=== PATIENT | male | born 1940 | race Caucasian/White ===

== ENCOUNTER → 2017-03-07 | Outpatient (CLI) | payer OTHER ==
[~2017-03-07] VITALS: Ht 170.2 cm; Wt 63.5 kg
[~2017-03-07] MED LIST: APRISO0.375 GM PO; ASPIR 8181 MG PO; CO Q-10100 MG PO; DILT-XR240 M1 PO; LIPITOR 20 MG T20 M1 PO; LISINOPRIL20 MG PO; OMEGA-31000 M1 PO; OSTEO BI-FLEX1 EAC1 PO; PLAVIX 75 MG TA75 M1 PO; SERTRALINE HCL100 MG PO; UNICOMPLEX M TA1 TA1 PO; VALIUM5 MG PO; VITAMIN D3400 UNIT PO
--- NOTE | ~2017-03-07 | HPC ---
[facility] [place] [address] PAIN MANAGEMENT CONSULTATION Name: WAGNER NEWMAN Room #: [facility].#: [id number] Admission: 03/07/17 Attend Phys: Wagner Marlow MD Discharge: Date of : 39 Report #: [id number] THIS REPORT FOR: //name// CC: Art Marlow DATE OF SERVICE: 03/07/2017 CHIEF COMPLAINT: Chronic back pain with increasing severity of radiating leg pain, lumbar radiculopathy. The patient is a pleasant 76-year-old who Dr. Zambrano has asked me to see today in evaluation of low back and leg pain. He has reported on and off back pain, in his words, for the last 20 years. More recently in the last year or so, he has noticed some increasing pain that radiates into both legs, generally worse in the morning. Standing is not good, but he finds that walking on a treadmill actually makes his pain feel better. He also uses heat. This description of pain results in a report of a periodic pattern of aching that varies in intensity between 8/10 and 2/10. Treatment so far included generally exercise. He has not been taking much in the way of pain medications, and he is reluctant to do so. Dr. Zambrano has suggested evaluation for possible epidural injection should be noted at this point that he is still on his Plavix, which he takes at this time for a recognized with x-ray diagnosed many strokes. MEDICATIONS: Plavix 75 mg daily, diltiazem, atorvastatin, lisinopril, diazepam, sertraline and Apriso for colitis. ALLERGIES: None. PAST MEDICAL HISTORY: Hypertension, diffuse degenerative osteoarthritis, history of colitis and he was diagnosed on MRI as having some small cerebellar strokes. These have been asymptomatic. PAST SURGICAL HISTORY: Hemorrhoidectomy 30 years ago, appendectomy 50 years ago. REVIEW OF SYSTEMS: Good general health, some hearing loss, chronic cough, nocturia, slight tremor, on a bruising or bleeding tendency, on blood thinner. 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 Smokes a pipe, has done so for about 40 years and drinks alcohol in social setting. PHYSICAL EXAMINATION: [facility] [address] [place] [address] PAIN MANAGEMENT CONSULTATION Name: WAGNER NEWMAN Room #: [facility]#: [id number] Admission: 03/07/17 Attend Phys: Wagner Marlow MD Discharge: Date of : 39 Report #: [id number] GENERAL: Very pleasant 76-year-old gentleman. His blood pressure 123/73, heart rate 64, respirations 16. His BMI is 21.9 and moves easily from sitting to standing position, ambulates with a steady gait. There are no antalgic features. He does not appear to be in unsteady or shows signs of spasticity or weakness. CARDIAC: Rhythm is regular. CHEST: Clear. ABDOMEN: Soft, back is nontender, range of motion is within normal limits for age. Mild tenderness over the lumbosacral segment is noted. Straight leg raising reproduces only mild symptoms of radiculopathy down the posterior aspect of the leg where his symptoms generally occur throughout the day. Sensation is intact. No focal weakness. Deep tendon reflexes are absent bilaterally. X-rays available are reviewed demonstrating degenerative changes of the spine. RECOMMENDATION: His symptoms following an L5-S1 distribution. This is typical sciatica that occurs with degenerative changes. Trial of an epidural steroid injection may be most helpful. 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 Potential risks and benefits were reviewed in detail, questions were answered and plan to see him back in the pain clinic sometime in the next week to 10 days. By: [id number] Wagner Marlow MD /nt
[2017-03-07 10:52] VITALS: BP 123/73
== END ==
LOC: PAIN 07:03
DX: M54.16 Radiculopathy, lumbar region (principal); G89.29 Other chronic pain; I10 Essential (primary) hypertension; M19.90 Unspecified osteoarthritis, unspecified site; F17.210 Nicotine dependence, cigarettes, uncomplicated

== ENCOUNTER → 2017-03-21 | Outpatient (CLI) | payer OTHER ==
[~2017-03-21] VITALS: Ht 170.2 cm; Wt 64.9 kg
--- NOTE | ~2017-03-21 | HPC ---
[facility] [place] [address] PAIN MANAGEMENT CONSULTATION Name: VALERIE NEWMAN Room #: REG [facility].#: [id number] Admission: 03/21/17 Attend Phys: Valerie Marlow MD Discharge: Date of : 39 Report #: [id number] THIS REPORT FOR: //name// CC: Art Marlow DATE OF SERVICE: 03/21/2017 DATE OF REGISTRATION: 03/21/2017. REASON FOR VISIT: Followup visit for lumbar radiculopathy. SUBJECTIVE: The patient was seen just a week ago, on Plavix. He has discontinued his medication for 7 days in anticipation of an epidural injection. Nothing has changed since his last visit. Continues to experience pain bilaterally in lower extremities. Reviewed his diagnosis from his previous visit. Our plan is to proceed today with an epidural injection. IMPRESSION: 1. Chronic low back pain with radiculopathy, L5-S1 distribution. Multilevel degenerative spinal disease. 2. History of mild cerebrovascular accident, off Plavix for 7 days. PLAN: After informed consent, the patient has agreed to proceed today with an injection under fluoroscopic guidance. PROCEDURE: Epidural steroid injection. The patient was taken to fluoroscopic suite, placed prone, skin prepped with ChloraPrep. Skin anesthetized over L4-L5, and a 20-gauge Tuohy epidural needle advanced into the epidural space. No blood nor CSF was aspirated. Then, 1 mL of Omnipaque was injected. Good spread of dye observed in the epidural space followed by 3 mL of 0.5% lidocaine mixed with 80 mg of triamcinolone. He tolerated the procedure well and was observed for 45 minutes and discharged with a followup visit planned as needed in 1 month. By: 1555 0013 Valerie Marlow MD /nt
[2017-03-21 14:15] VITALS: BP 125/67
== END | disposition home or self-care (01) ==
LOC: PAIN 07:13
DX: M54.16 Radiculopathy, lumbar region (principal); I63.9 Cerebral infarction, unspecified; F17.210 Nicotine dependence, cigarettes, uncomplicated

== ENCOUNTER → 2017-10-23 | Outpatient (CLI) | payer OTHER ==
[~2017-10-23] VITALS: Ht 167.6 cm; Wt 65.1 kg
[~2017-10-23] MED LIST changes: +HYDROCODON-ACE1 EAC5 PO; +HYDROCODONE-AP1 EAC6 PO; +OXYCODONE-ACET1 EACH PO; +PERIDEX15 ML TOP
--- NOTE | ~2017-10-23 | HPC ---
[facility] [address] PAIN MANAGEMENT CONSULTATION Name: VALERIE NEWMAN Room #: REG [facility] Benji#: [id number] Admission: 10/23/17 Attend Phys: Shekhar Avery MD Discharge: Date of : 39 Report #: [id number] THIS REPORT FOR: //name// CC: Art Avery DATE OF SERVICE: 10/23/2017 FOLLOWUP COMPLAINT: "Pain improved after the last injections, but has increased and I am still having some pain that is going down the back of both my legs." FOLLOWUP HISTORY: The patient is a 76-year-old gentleman who has been seen in the pain clinic by Dr. Valerie Marlow. He has returned today indicating that the pain has improved. He has undergone epidural steroid injections and gleaned benefits from them. He returned today indicating that the pain is more in the posterior portion of his leg and radiating down into the back and posterior portion of his thighs and calves. He found that the [facility] medication was helpful. He felt that the pain returned and given the small number of pills that he had received, he has taken them. He is wondering whether or not a different medication or a longer-term medication could be more helpful. The patient is unable to take nonsteroidal anti-inflammatory medication because he is on Plavix. He finds that use of Tylenol has not been very beneficial. He has had a conversation with Dr. Marlow regarding use of opioid medications. He would like for us to refill his prescription and he will follow up with Dr. Marlow in the future regarding longer-term medication use. PHYSICAL EXAMINATION: VITAL SIGNS: Blood pressure 116/84, pulse 87, respiratory rate 16, and room air saturation 96%. Height 5 feet 6 inches, weight 143 pounds. The patient has fallen in the last 3 months. He is walking with a cane. He rates his pain as a 7/10. HEENT: Unremarkable. NECK: Without adenopathy. There are no bruits. CHEST: Clear. HEART: Regular rate. ABDOMEN: Nontender. NEUROLOGIC: The patient is walking with use of a cane. He is able to stand and reports pain that radiates from his lower back down into the posterior portion of his legs bilaterally. He has a trace patellar reflex on the left and right, trace patellar reflexes on the ankles. No evidence of increased swelling in his lower extremities. The patient walks with use of his cane and has an antalgic gait. Straight leg raising is mildly positive. IMPRESSION: 1. Lumbar radiculopathy, which has improved in the past with epidural steroid [address] [address] PAIN MANAGEMENT CONSULTATION Name: VALERIE NEWMAN Room #: REG [facility]#: [id number] Admission: 10/23/17 Attend Phys: Shekhar Avery MD Discharge: Date of : 39 Report #: [id number] injections. 2. Hypertension. 3. Hyperlipidemia. 4. Anxiety. RECOMMENDATIONS: The patient finds that the hydrocodone was helpful. We will increase him from 30 tablets, which Dr. Marlow had provided, to 60 tablets. We will proceed with a lumbar epidural steroid injection. We will have the patient follow up with Dr. Marlow regarding longer-term medical management. Risks and benefits of the procedure, which could include, but are not limited to infection, increased muscle soreness, headache, bleeding, muscle trauma, and nerve trauma were discussed. The patient elects to proceed. PROCEDURE NOTE: The patient was placed in the prone position. Fluoroscopy was used to identify the L5-S1 interspace. This area had been sterilely prepped with Betadine and infiltrated with 0.25% bupivacaine. Total of 80 mg Depo-Medrol, 40 mg triamcinolone, and 2 mL of 0.25% bupivacaine was injected. The patient tolerated the procedure well. Anterior and lateral fluoroscopy approved appropriate needle placement. The patient's back was observed. A Band-Aid was placed. There were no bleeding problems. The patient was then taken to the recovery room where he remained for an appropriate amount of time. He will follow up in the near future as needed. A script for hydrocodone 5/325 one p.o. b.i.d. has been written. <ELECTRONICALLY SIGNED> By: Shekhar Avery MD 01/01/18 1121 [id number] Shekhar Avery MD /nt
[2017-10-23 10:23] VITALS: BP 116/84
== END | disposition home or self-care (01) ==
LOC: PAIN 06:56
DX: M54.16 Radiculopathy, lumbar region (principal); G89.29 Other chronic pain; I10 Essential (primary) hypertension; E78.5 Hyperlipidemia, unspecified; F41.8 Other specified anxiety disorders; Z98.890 Other specified postprocedural states; Z79.891 Long term (current) use of opiate analgesic; F17.200 Nicotine dependence, unspecified, uncomplicated; Z79.82 Long term (current) use of aspirin; Z79.899 Other long term (current) drug therapy

== ENCOUNTER → 2017-11-18 | Outpatient (CLI) | payer OTHER ==
[~2017-11-18] VITALS: Ht 170.2 cm; Wt 65.6 kg
--- NOTE | ~2017-11-18 | HPC ---
[facility] [place] [address] PAIN MANAGEMENT CONSULTATION Name: VALERIE NEWMAN Room #: REG [facility].#: [id number] Admission: 11/18/17 Attend Phys: Valerie Marlow MD Discharge: Date of : 39 Report #: [id number] THIS REPORT FOR: //name// CC: Art Marlow DATE OF SERVICE: 11/18/2017 SUBJECTIVE: Followup visit for low back pain and radiculopathy, right leg. The patient returns to pain clinic today and has pain more consistent with right L3 distribution. He previously has had pain that radiates down into both legs. He saw Dr. Avery on 10/23/2017 and received an epidural steroid injection at L5-S1. That was not as helpful as previous injections have been and he also noticed that the pain changed somewhat. He has difficulty crossing his right leg. He does not necessarily note weakness, but that simple maneuver bothers him that he cannot do it without significant discomfort. His says that he also has trouble standing in line or at [facility] and has to look for a chair. As soon as he sits down, his pain is improved. Pain radiates as far as the knee. Medications were reviewed and reconciled. He is on a blood thinner and has continued that through his today's visit without anticipation of injection. He is here today to discuss next steps. MEDICATIONS: Include hydrocodone 5/325, which he does not think helps to very much. He is on Plavix 75 mg, diazepam 5 mg twice a day for anxiety, lisinopril, diltiazem, atorvastatin, sertraline, , multivitamins and aspirin. PQRS review shows a history of osteoarthritis in the hands, mostly involving the proximal interphalangeal joint and the metacarpophalangeal joint of the thumb. He is treated that with anti-inflammatories in the past, but cannot use them now due to the use of Plavix. His BMI is 22.6 and he is not overweight. Vital signs were blood pressure 112/69, heart rate 89, O2 sat 95. Pain intensity in the sitting position is 2, it only becomes severe when he stands. He is a fall risk, using a cane, but has not fallen in the last 3 months. He is on blood thinner, Plavix. He has hypertension, under treatment with a dual medication therapy from Dr. Zambrano. He is on an opioid agreement, which was signed on 11/18/2017 and I have provided him with a new prescription for oxycodone just 30 tablets to see if this will help with the severe episodes of pain. He is at low risk and a risk assessment tool was performed. He has a functional assessment tool, which shows high involvement of his pain and day-to-day activities with a 46/70. Continues to smoke a pipe and has done so for 40 years and drinks alcohol, perhaps 1 drink daily in a social setting. PHYSICAL EXAMINATION: Reveals much of what discussed above. He has pain in his [address] [place] [address] PAIN MANAGEMENT CONSULTATION Name: VALERIE NEWMAN Room #: REG [facility]#: [id number] Admission: 11/18/17 Attend Phys: Valerie Marlow MD Discharge: Date of : 39 Report #: [id number] back, but excellent range of motion. No pain with forward flexion, extension, rotation or [id number] tilt. Negative straight leg raising. Good rotation in and around hip, but no pain, internal and external rotation. Sensation is intact and strength is normal. Deep tendon reflexes are diminished at knees and ankle bilaterally and symmetrically. IMPRESSION: Low back pain with L3 distribution radicular pain. RECOMMENDATIONS: 1. MRI scan will be performed today without contrast and we will review the studies and consider another epidural injection after his off Plavix. 2. Trial of oxycodone. 3. Follow up by phone after the MRI is done and I will review it with him over the phone. <ELECTRONICALLY SIGNED> By: Valerie Marlow MD 12/18/17 1640 [id number] [id number] Valerie Marlow MD /july
[2017-11-18 13:38] VITALS: BP 112/69
== END ==
LOC: PAIN 07:06
DX: M54.16 Radiculopathy, lumbar region (principal)

== ENCOUNTER → 2017-11-20 | Outpatient (CLI) | payer OTHER | LOC: MRI 09:48 | DX: M48.061 Spinal stenosis, lumbar region without neurogenic claudication (principal); M51.37 Other intervertebral disc degeneration, lumbosacral region; M43.17 Spondylolisthesis, lumbosacral region; M51.27 Other intervertebral disc displacement, lumbosacral region; M46.87 Other specified inflammatory spondylopathies, lumbosacral region ==

== ENCOUNTER → 2017-11-28 | Outpatient (CLI) | payer OTHER ==
[~2017-11-28] VITALS: Ht 167.6 cm; Wt 64.1 kg
--- NOTE | ~2017-11-28 | HPC ---
[facility] [place] [address] PAIN MANAGEMENT CONSULTATION Name: VALERIE NEWMAN Room #: REG [facility].#: [id number] Admission: 11/28/17 Attend Phys: Valerie Marlow MD Discharge: Date of : 39 Report #: [id number] THIS REPORT FOR: //name// CC: Art Marlow DATE OF SERVICE: 11/28/2017 Followup visit for severe right lumbar radiculopathy. The patient returns to pain clinic today. I spoke with him over the phone about the MRI that I had ordered. He is here today to review the films and the options for treatment going forward. His MRI dated 11/20/2017 shows grade 1 anterolisthesis of L5; however, the more significant disease is multilevel degenerative disk disease with bulging, facet arthropathy resulting in severe spinal stenosis at lumbar 3-4 and moderate spinal stenosis at lumbar 2-3. There is multilevel narrowing of the lateral recess and neural foraminal narrowing at several levels. He continues to score his function at a 46/70 for interference. This is substantially high and involves general activities, mood, walking and he scores 8/10 for the pain interfering with his ability to enjoy life. He has taken both oxycodone and hydrocodone preferring the latter. He has had few side effects. He does not over utilize his pain medication. He is here today off of his Plavix with anticipation for injection. MEDICATIONS: Reviewed and reconciled. He is off his Plavix for 1 week. PQRS REVIEW: He has osteoarthritis involving his thumbs and large joints. He has remained fit over the years and his BMI is 28. His pain intensity sitting is 5/10, increasing with walking. He is a fall risk, although fortunately has not fallen, been cautious and uses a cane. He has a history of hypertension treated by Dr. Zambrano. He is on a blood thinner, Plavix, discontinued for injection. He is on an opioid agreement established 11/18/2017. His risk assessment tool is low 1/3. His functional assessment tool as described above. He continues to smoke a pipe, which he enjoys and has 1 alcoholic beverage daily in a social setting with his . PHYSICAL EXAMINATION: Reveals a pleasant 77-year-old gentleman, pain with movement, standing and walking. He walks with a cane. His blood pressure 112/71, heart rate 78, respirations 16. Positive straight leg raising on the right, follows an L4 distribution. IMPRESSION: Severe spinal stenosis at L3-L4 [place] [address] PAIN MANAGEMENT CONSULTATION Name: VALERIE NEWMAN [facility] #: [facility] [id number] Admission: 11/28/17 Attend Phys: Valerie Marlow MD Discharge: Date of : 39 Report #: [id number] RECOMMENDATION: 1. Right L3-L4 transforaminal epidural injection. 2. Renewal of hydrocodone . Twenty-five minutes spent in consultation with the patient regarding medication and options. We have reviewed surgical options as well. PROCEDURE: Transforaminal epidural steroid injection under fluoroscopic guidance. He was taken to fluoroscopic suite, placed prone, skin prepped with ChloraPrep. Skin anesthetized over the L3-L4 neural foramen. Using triplanar fluoroscopic views, a needle was advanced into the neural foramen and 1 mL of Omnipaque was injected demonstrating excellent epidurogram and spread along the L3 nerve root. It was then followed by 3 mL of 0.5% lidocaine mixed with 80 mg triamcinolone. He tolerated the procedure well. He was instructed to restart his Plavix the next day and we will see him back in the pain clinic in 3 weeks for consideration of a second injection. He would like very much to avoid surgery. <ELECTRONICALLY SIGNED> By: Valerie Marlow MD 12/18/17 1640 [id number] [id number] Valerie Marlow MD /nt
[2017-11-28 15:05] VITALS: BP 112/71
== END | disposition home or self-care (01) ==
LOC: PAIN 06:58
DX: M54.16 Radiculopathy, lumbar region (principal); M48.061 Spinal stenosis, lumbar region without neurogenic claudication; Z79.899 Other long term (current) drug therapy; F17.200 Nicotine dependence, unspecified, uncomplicated

== ENCOUNTER → 2017-12-19 | Outpatient (CLI) | payer OTHER ==
[~2017-12-19] VITALS: Ht 167.6 cm; Wt 62.4 kg
--- NOTE | ~2017-12-19 | HPC ---
[facility] [address] [place] [address] PAIN MANAGEMENT CONSULTATION Name: WAGNER NEWMAN Room #: REG [facility].#: [id number] Admission: 12/19/17 Attend Phys: Wagner Marlow MD Discharge: Date of : 39 Report #: [id number] THIS REPORT FOR: //name// CC: Art Marlow DATE OF SERVICE: 12/19/2017 REASON FOR VISIT: Followup visit for low back pain with radiculopathy secondary to spinal stenosis. HISTORY OF PRESENT ILLNESS: The patient has rather severe spinal stenosis at L3-L4 with lumbar radiculopathy. He has received epidural injections on 2 occasions. The first did not help much, in fact made his leg a bit worse. A second helped the leg pain but he still has some back pain. I have asked him to because of the significant nature of his stenosis. He uses some hydrocodone with good result. He takes it only in the morning. I provided him with a prescription for up to 2 tablets a day. He denies side effects, should not be on anti-inflammatories due to his use of Plavix. PQRS reviewed shows once again osteoarthritis of the thumbs and large joints. BMI is 28. Pain intensity today is down to a 3. It is increased with his weightbearing and walking and he is at fall risk, although he has not fallen. Hypertension is treated by Dr. Zambrano. He is on the Plavix for coronary artery disease. We reviewed his opioid agreement and his responsibilities with him. IMPRESSION: Severe spinal stenosis L3-L4 with lumbar radiculopathy. PLAN: 1. Follow up as needed for repeat epidural injection. 2. Appointment with Dr. Menjivar's team to determine suitability for possible future surgery. <ELECTRONICALLY SIGNED> By: Wagner Marlow MD 01/27/18 1408 [id number] [id number] Wagner Marlow MD /nt
[2017-12-19 13:14] VITALS: BP 114/73
== END ==
LOC: PAIN 07:30
DX: M54.16 Radiculopathy, lumbar region (principal)

== ENCOUNTER → 2018-03-27 | Outpatient (CLI) | payer OTHER | LOC: MRI 06:43 | DX: M22.41 Chondromalacia patellae, right knee (principal); Z91.81 History of falling ==

== ENCOUNTER → 2018-10-23 | Outpatient (CLI) | payer OTHER ==
[~2018-10-23] VITALS: Ht 167.6 cm; Wt 65.3 kg
[~2018-10-23] MED LIST changes: +VOLTAREN GEL 1100 G2 TOP
--- NOTE | ~2018-10-23 | HPC ---
[facility] [address] [address] PAIN MANAGEMENT CONSULTATION Name: VALERIE NEWMAN Room #: REG [facility].#: [id number] Admission: 10/23/18 Attend Phys: Valerie Marlow MD Discharge: Date of : 39 Report #: [id number] THIS REPORT FOR: //name// CC: Art Marlow DATE OF SERVICE: 10/23/2018 Followup visit for chronic low back pain, spinal stenosis, now post-laminectomy. The patient had a laminectomy this fall. His leg pain was improved, but he continues to have lumbosacral pain scoring it as an 8/10, worse with standing, walking, bending and in the mornings. He says he actually feels better after he walks, but when he sits too long, the back pain increases. Medications were reviewed and reconciled. He has hydrocodone 5-10 mg twice a day. He is taking this now for some time with minimal side effects other than constipation, which has been managed with diet and Senokot-S. He is on medication for hypertension, lisinopril and diltiazem. He takes a statin drug. He is on sertraline and takes Plavix for what he describes as a hole in his heart. I do not have current records documenting of ASD or VSD. I believe it is an ASD and he has been told to stay on blood thinner to reduce the risk of stroke. He is not a fall risk at this time. He is on an opioid agreement, which has been signed and reviewed. He understands the importance of safeguarding all medications. We have discussed the opioid crisis in [place] and CDC guidelines which direct our prescribing. He has responded favorably in the past epidural injections. PHYSICAL EXAMINATION: This is pleasant 77-year-old gentleman, moves from sitting to standing position, ambulates without too much difficulty. Limited range of motion of the lumbar spine is noted in flexion and extension. Tenderness over the scar is present. Straight leg raising is positive, but the pain occurs only in his low back. Pain is diffuse across the lumbosacral segment. Sacroiliac joints are nontender. IMPRESSION: 1. Post-laminectomy syndrome. 2. History of spinal stenosis, now with decompression. 3. Lumbar spondylosis. 4. Management of opioid medications under terms of written opioid agreement. [address] [address] PAIN MANAGEMENT CONSULTATION Name: VALERIE NEWMAN Room #: [facility]#: [id number] Admission: 10/23/18 Attend Phys: Valerie Marlow MD Discharge: Date of : 39 Report #: [id number] PLAN: 1. I renewed his medications for 3 months. 2. Consider going off of Plavix for 1 week and then returning for an epidural steroid injection. By: 1630 0012 Valerie Marlow MD /nt
[2018-10-23 13:22] VITALS: BP 125/61
--- NOTE | 2018-10-23 13:48 | NUR ---
Pain Clinic Assessment: 1. History of Osteoarthritis: THUMBS History of Rheumatoid Arthritis: NO 2. Height: 5 ft. 6 in. 167.6 cm. Weight: 144.0 lb. oz. 65.318 kg. Patient's BMI: 23.3 3. Vital Signs: BP: 125/61 Pulse: 78 Resp: 14 Temp: 02 Sat: 100 ECG Mon: 4. Pain Intensity: 8 5. Fall Risk: Dizziness: N Needs help standing or walking: N Fallen in the last 3 months: N Fall risk comments: 6. Patient on Blood Thinner: Clopidogrel Bisulf(Plavix 7. History of Hypertension: Y 8. Opioid Therapy greater than 6 weeks: Y Opiate Contract Signed: 11/18/17 9. Risk Assessment Tool Provided: LOW RISK 10/23 10. Functional Assessment Tool: 11. Recreational Drug Use: Never Drug Type: Tobacco Use: Current Every Day Smoker Tobacco Type: Pipe Tobacco Amount or Packs/day: VARIES How Many Years: Alcohol Use: Yes Frequency: Daily Quant: 1
== END ==
LOC: PAIN 07:31
DX: M96.1 Postlaminectomy syndrome, not elsewhere classified (principal); M47.816 Spondylosis without myelopathy or radiculopathy, lumbar region; M48.061 Spinal stenosis, lumbar region without neurogenic claudication; Z79.891 Long term (current) use of opiate analgesic; Z79.899 Other long term (current) drug therapy

== ENCOUNTER → 2019-05-28 | Outpatient (CLI) | payer OTHER ==
[~2019-05-28] VITALS: Ht 167.6 cm; Wt 62.6 kg
[2019-05-28 11:15] VITALS: BP 140/77
--- NOTE | 2019-05-28 11:28 | NUR ---
Pain Clinic Assessment: 1. History of Osteoarthritis: THUMBS History of Rheumatoid Arthritis: NO 2. Height: 5 ft. 6 in. 167.6 cm. Weight: 138.0 lb. oz. 62.596 kg. Patient's BMI: 22.3 3. Vital Signs: BP: 140/77 Pulse: 72 Resp: 14 Temp: 02 Sat: 95 ECG Mon: 4. Pain Intensity: 5 5. Fall Risk: Dizziness: N Needs help standing or walking: N Fallen in the last 3 months: N Fall risk comments: 6. Patient on Blood Thinner: Clopidogrel Bisulf(Plavix 7. History of Hypertension: Y 8. Opioid Therapy greater than 6 weeks: Y Opiate Contract Signed: 11/18/17 9. Risk Assessment Tool Provided: LOW RISK 10/23 10. Functional Assessment Tool: 11. Recreational Drug Use: Never Drug Type: Tobacco Use: Current Every Day Smoker Tobacco Type: Pipe Tobacco Amount or Packs/day: How Many Years: Alcohol Use: Yes Frequency: Weekly Quant:
--- NOTE | 2019-06-01 08:38 | HPC ---
[facility] [address] [place] [address] PAIN MANAGEMENT CONSULTATION Name: VALERIE NEWMAN [id number] Admission: 05/28/19 Attend Phys: Lupis Rodriguez Discharge: Date of : 39 Report #: [id number] THIS REPORT FOR: //name// CC: Lupis Springer DATE OF SERVICE: 05/28/2019 CHIEF COMPLAINT: Chronic low back pain, spinal stenosis, post-laminectomy. HISTORY OF PRESENT ILLNESS: This is a very pleasant 78-year-old gentleman who returns to the pain clinic today for refill of his hydrocodone. He uses this medicine very sparingly, half a tablet usually daily. His last prescription has lasted him 8 months since we saw him last. He tells me his pain score is a 5. Generally, his pain is located just across his back. It does not radiate into his legs. It is worse in the mornings as well as when he bends over or stands for a prolonged period of time. He tells me the medicine helps him get going in the morning and then he does exercise and he does feel better after he has taken his medication and exercise. He denies any problems. He does tell me he has some problems with constipation, but takes Senokot for this. He would like a refill of his medications today. ALLERGIES: No known drug allergies. CURRENT LIST OF MEDICATIONS: Hydrocodone 10/325 p.r.n., Pradaxa, omega-3, CoQ10, Osteo Bi-Flex, vitamin D, aspirin, multivitamin, Apriso, Zoloft, Lipitor, diltiazem, lisinopril, Plavix. PQRS: 1. He has osteoarthritic changes in his hands and his back. Denies any rheumatoid arthritis. 2. Height is 5 feet 6 inches, weight is 138, BMI is 22. 3. Vital signs: 140/77, pulse is 72, respirations 14, oxygen sat is 95. 4. Pain score is 5/10. 5. Denies dizziness. Does not need help walking or standing, has not fallen in the last 3 months. 6. The patient is on Plavix and also takes medicine for hypertension. 7. Opioid therapy is greater than 6 weeks. He does have an opioid signed contract on the chart. His risk assessment tool is low. Functional assessment is 32/70. 8. Recreational drug use, he denies. He is a current smoker and does drink alcohol. According to the prescription monitoring system, the patient is filling very sparingly his medications. His last prescription was filled in November. [address] [address] PAIN MANAGEMENT CONSULTATION Name: VALERIE NEWMAN Room #: REG [facility] Benji#: [id number] Admission: 05/28/19 Attend Phys: Lupis Rodriguez Discharge: Date of : 39 Report #: [id number] PHYSICAL EXAMINATION: GENERAL: This is a very pleasant 78-year-old gentleman who appears his stated age, who is alert and orientated, placing his current pain score at 5/10. HEENT: Normocephalic, atraumatic. Extraocular eye muscles are intact. Mucous membranes are moist. MUSCULOSKELETAL: The patient has pain across his lumbar spine. He is able to have forward flexion and extension and rotation, side to side with limited pain. He has negative straight leg raising. He walks with a normal gait. His lower extremity strength judged to be 5/5 in all major muscle groups. We reviewed the fact that opiate medications are being used to provide analgesia adequate to support activities of daily living, not attempting to achieve a specific pain score on the 0-10 Visual Analog Scale. The current opiate medications are providing sufficient analgesia to allow the patient to participate in activities of daily living. The patient is not exhibiting any aberrant behavior suggestive of drug diversion. The patient is not having any adverse reactions to medications. The patient is not suffering from daytime somnolence or mental acuity changes. The patient is managing opiate-induced constipation with appropriate jkrl-oef-vemgaic agents and dietary considerations. The patient was counseled on concern for caution with operating a motor vehicle while using opiate medications. A physical exam was performed and the patient's functional status was evaluated. All patients with back pain were advised against the bed rest greater than 4 days and were advised to return to normal activities. Pain score assessment was noted and the treatment plan was reviewed with the patient. All current medications, both prescribed and OTC were reviewed and reconciled on the electronic medical record. Tobacco screening was accomplished and smoking cessation was advised when indicated. BMI was noted and diet/exercise modification was recommended for all patients following outside normal parameters. I reviewed with the patient today their responsibilities to safeguard prescription medications, reviewed their responsibility to utilize medications only as prescribed by the physician. They are to seek and receive pain medications only from 1 physician group ( [facility]). They are to use 1 pharmacy and keep the clinic informed if they change pharmacies. Their responsibilities include making followup visits in a timely fashion and to avoid abrupt discontinuation of medication usage. Their responsibilities further include bringing their medications (bottles from the pharmacy with residual pills) to the visit for possible confirmation of pill counts and the patient understands it is their responsibility to submit to random drug screens to ensure both that the medications prescribed are present, and that no other controlled substances are present. All prescriptions provided today were generated electronically. [facility] [address] [place] [address] PAIN MANAGEMENT CONSULTATION Name: VALERIE NEWMAN Room #: REG [facility] Leblanc#: [id number] Admission: 05/28/19 Attend Phys: Lupis Rodriguez Discharge: Date of : 39 Report #: [id number] IMPRESSION: 1. Post-laminectomy syndrome. 2. Spinal stenosis, now decompression. 3. Lumbar spondylosis. 4. Management of opioid medications under terms of written opioid agreement. PLAN: 1. We discussed treatment options with the patient today. The patient finds a half of a hydrocodone very beneficial. On days that he is going to be more active, he does require one additional pill. Scripts given today for hydrocodone 10/325, #60 for today and 4-week release. 2. I did inform the patient that if his insurance company only pays for 7-day supply since it has been greater than a month since he filled his last prescription, he was to notify us. He does take opioids on a daily basis, though he does take them sparingly. 3. The patient talks about some problems with constipation. We discussed increasing his Senokot to 2 tablets at bedtime or if that is not beneficial as well as increasing his fluid intake to try MiraLax in the morning. The patient verbalizes understanding. The patient is seen with Dr. Valerie Marlow, who collaborated care and saw the patient as well today. <ELECTRONICALLY SIGNED> By: Lupis Rodriguez 06/01/19 0838 [id number] Lupis gifford
== END ==
LOC: PAIN 06:57
DX: M47.816 Spondylosis without myelopathy or radiculopathy, lumbar region (principal); M48.062 Spinal stenosis, lumbar region with neurogenic claudication; M96.1 Postlaminectomy syndrome, not elsewhere classified; Z79.899 Other long term (current) drug therapy

== ENCOUNTER → 2019-09-24 | Outpatient (CLI) | payer OTHER ==
[~2019-09-24] VITALS: Ht 167.6 cm; Wt 64.0 kg
[2019-09-24 10:43] VITALS: BP 152/78
--- NOTE | 2019-09-24 10:50 | NUR ---
Pain Clinic Assessment: 1. History of Osteoarthritis: THUMBS History of Rheumatoid Arthritis: DENIES 2. Height: 5 ft. 6 in. 167.6 cm. Weight: 141.0 lb. oz. 63.957 kg. Patient's BMI: 22.8 3. Vital Signs: BP: 152/78 Pulse: 75 Resp: 16 Temp: 02 Sat: 92 ECG Mon: 4. Pain Intensity: 8 IN AM 1 NOW 5. Fall Risk: Dizziness: N Needs help standing or walking: N Fallen in the last 3 months: N Fall risk comments: 6. Patient on Blood Thinner: Clopidogrel Bisulf(Plavix 7. History of Hypertension: Y 8. Opioid Therapy greater than 6 weeks: Y Opiate Contract Signed: 11/18/17 9. Risk Assessment Tool Provided: LOW RISK 10/23 10. Functional Assessment Tool: 11. Recreational Drug Use: Never Drug Type: Tobacco Use: Current Every Day Smoker Tobacco Type: Pipe Tobacco Amount or Packs/day: How Many Years: Alcohol Use: Yes Frequency: Daily Quant: VODKA MARTINI 1 A DAY
--- NOTE | 2019-09-24 16:14 | HPC ---
[facility] [address] [place] [address] PAIN MANAGEMENT CONSULTATION Name: VALERIE NEWMAN [facility]: [facility] [id number] Admission: 09/24/19 Attend Phys: Lupis Rodriguez Discharge: Date of : 39 Report #: [id number] THIS REPORT FOR: //name// CC: Lupis Zambrano MD [facility] physician/PCP Valerie Marlow MD DATE OF SERVICE: 09/24/2019 CHIEF COMPLAINT: Low back pain, spinal stenosis, post-laminectomy syndrome. HISTORY OF PRESENT ILLNESS: This is a very pleasant 78-year-old gentleman who returns to the pain clinic today for a refill of his medication. He does take these very sparingly, sometimes only needing 1 tablet a day, occasionally taking 2 as we have prescribed for him. He was last here 4 months ago due to this p.r.n. usage. He reports a pain score today of 1/10 currently. His pain is worse upon awakening in the morning. He feels that after he walks around and does some stretching exercises at home that that is beneficial as well as his medication and then he is able to be quite active. Resting also decreases his pain score as well. He does complain of some slight constipation occasionally and he does take MiraLax for that. Otherwise, he has no side effects from these medications and finds very beneficial and would like refills today. ALLERGIES: No known drug allergies. CURRENT LIST OF MEDICATIONS: Hydrocodone 10/325 p.r.n., omega 3, CoQ10, Osteo Bi-Flex, vitamin D, multivitamin, sertraline, atorvastatin, diltiazem, lisinopril, Plavix. PQRS: 1. He has osteoarthritic changes in his hands. Denies any rheumatoid arthritis. 2. Height is 5 feet 6 inches, weight is 141. BMI is 22. Pain score is 8/10 in the morning, 1/10 currently. Fall risk; denies dizziness, does not need help walking or standing, has not fallen in the last 3 months. 3. The patient is on Plavix and also hypertension medicines. 4. Opiate therapy is greater than 6 weeks; therefore, an opioid signed contract is on the chart. Risk assessment tool is 32/70. 5. Recreational drug use, he denies. He is a current pipe smoker of daily and drinks 1 alcoholic beverage a day. According to the prescription monitoring system, the patient is filling appropriately for his medications and [place] [address] PAIN MANAGEMENT CONSULTATION Name: VALERIE NEWMAN Evens [id number] Admission: 09/24/19 Attend Phys: Lupis Rodriguez Discharge: Date of : 39 Report #: [id number] PHYSICAL EXAMINATION: GENERAL: This is a very pleasant 78-year-old gentleman who appears younger than his stated age, placing his current pain score at 1/10. He is alert and orientated and very good historian. HEENT: Normocephalic, atraumatic. Extraocular eye muscles are intact. Mucous membranes are moist. MUSCULOSKELETAL: He moves from sitting to standing position without any difficulty. He has decreased movement in his lumbar spine with flexion and extension. Lower extremity strength judged to be 5/5 in all major muscle groups. He has diffuse pain across his lumbosacral segment. IMPRESSION: 1. Post-laminectomy syndrome. 2. History of spinal stenosis, now with decompression. 3. Lumbar spondylosis. 4. Management of opioid therapy under written in terms of agreement. We reviewed the fact that opiate medications are being used to provide analgesia adequate to support activities of daily living, not attempting to achieve a specific pain score on the 0-10 Visual Analog Scale. The current opiate medications are providing sufficient analgesia to allow the patient to participate in activities of daily living. The patient is not exhibiting any aberrant behavior suggestive of drug diversion. The patient is not having any adverse reactions to medications. The patient is not suffering from daytime somnolence or mental acuity changes. The patient is managing opiate-induced constipation with appropriate wgck-bsu-ypjdaaf agents and dietary considerations. The patient was counseled on concern for caution with operating a motor vehicle while using opiate medications. PLAN: 1. We discussed treatment options with the patient today. The patient finds this hydrocodone very beneficial. We will electronically send his hydrocodone 10/325 to his pharmacy for #60 tablets for today and 4-week release. Typically, this does last the patient about 4 months in between intervals for his visit. 2. The patient does take MiraLax occasionally for his constipation issues, but does not have any daytime sleepiness or other adverse reactions to these medications. 3. The patient will return in followup as needed. He is seen in collaboration today with Dr. Valerie Marlow. <ELECTRONICALLY SIGNED> By: Lupis Rodriguez 09/24/19 1614 [id number] Lupis Rodriguez /july
== END ==
LOC: PAIN 06:52
DX: M48.061 Spinal stenosis, lumbar region without neurogenic claudication (principal); M96.1 Postlaminectomy syndrome, not elsewhere classified; M47.816 Spondylosis without myelopathy or radiculopathy, lumbar region; Z79.891 Long term (current) use of opiate analgesic

== ENCOUNTER → 2020-05-12 | Outpatient (CLI) | payer OTHER ==
[~2020-05-12] VITALS: Ht 167.6 cm; Wt 64.4 kg
[2020-05-12 13:59] VITALS: BP 143/79
--- NOTE | 2020-05-12 14:13 | NUR ---
Pain Clinic Assessment: 1. History of Osteoarthritis: THUMBS History of Rheumatoid Arthritis: DENIES 2. Height: 5 ft. 6 in. 167.6 cm. Weight: 142.0 lb. oz. 64.411 kg. Patient's BMI: 22.9 3. Vital Signs: BP: 143/79 Pulse: 72 Resp: 16 Temp: 02 Sat: 95 ECG Mon: 4. Pain Intensity: 9 IN AM; 3 REST OF DAY 5. Fall Risk: Dizziness: N Needs help standing or walking: N Fallen in the last 3 months: N Fall risk comments: 6. Patient on Blood Thinner: Clopidogrel Bisulf(Plavix 7. History of Hypertension: Y 8. Opioid Therapy greater than 6 weeks: Y Opiate Contract Signed: 11/18/17 9. Risk Assessment Tool Provided: LOW RISK 10/23 10. Functional Assessment Tool: 11. Recreational Drug Use: Never Drug Type: Tobacco Use: Current Every Day Smoker Tobacco Type: Amount or Packs/day: How Many Years: Alcohol Use: Yes Frequency: Quant:
--- NOTE | 2020-05-13 07:55 | HPC ---
[facility] [address] [place] [address] PAIN MANAGEMENT CONSULTATION Name: VALERIE NEWMAN Room #: REG [facility]..#: [id number] Admission: 05/12/20 Attend Phys: Lupis Rodriguez Discharge: Date of : 39 Report #: [id number] THIS REPORT FOR: cc: MALATHI - [facility] family physician/PCP FAM - No family physician/PCP Lupis Rodriguez ~ CC: Lupis Marlow MD DATE OF SERVICE: 05/12/2020 CHIEF COMPLAINT: Low back pain, spinal stenosis, post-laminectomy syndrome. HISTORY OF PRESENT ILLNESS: This is a very pleasant 79-year-old gentleman who returns to the pain clinic today for refill of his medication management. He states he is doing well on his current regimen of medication, taking one hydrocodone in the morning upon arising and then does exercise and stretch. He feels that most days he is able to get by with this regimen, some days he does require an extra half a pill of hydrocodone later in the day. Today, he is reporting a pain score of 3 currently and 9 in the morning. It is located in his lower back and occasionally in his left leg, the posterior area not past his knee. Walking, standing and bending are worse, but heat and that the medication as I stated were beneficial. He does not experience any constipation as a result of his medications. Typically, his medications do last longer than the prescribed amount. ALLERGIES: No known drug allergies. CURRENT LIST OF MEDICATIONS: Hydrocodone 10/325 p.r.n., [place] 3, CoQ10, Osteo Bi-Flex, vitamin D3, multivitamin, sertraline, atorvastatin, diltiazem, lisinopril and Plavix. PQRS: 1. He does have a history of osteoarthritis in his hands and his interphalangeal joint of the thumb. He denies any rheumatoid arthritis. 2. Height is 5 feet 6 inches, weight is 142, BMI is 22. 3. Vital signs; blood pressure 143/79, pulse is 72, respirations 16, oxygen sat is 95%. 4. Pain score is 9 in the morning and 3 the rest of the day. 5. Denies dizziness, does not need help walking or standing, has not fallen in the last 3 months. 6. The patient is on Plavix as well as medicine for hypertension. 7. Opioid therapy is greater than 6 weeks; therefore, an opioid signed contract is on the chart. Risk assessment tool is low. Functional assessment is 32/70. 8. Recreational drug use, he denies. He is a current everyday smoker [place] [address] PAIN MANAGEMENT CONSULTATION Name: VALERIE NEWMAN [facility] [id number] Admission: 05/12/20 Attend Phys: Lupis Rodriguez Discharge: Date of : 39 Report #: [id number] According to the prescription monitoring system, his last prescription fill was 03/09. He does take medications 1 to 1-1/2 times a day; therefore, it is longer in between his fills. His morphine milliequivalent is 10-20 MMEs per day. PHYSICAL EXAMINATION: GENERAL: This is alert and orientated, well-developed, well-nourished 79-year-old gentleman who looks younger than his stated age, placing his current pain score from 3-9/10 today. HEENT: Normocephalic, atraumatic. Pupils equal, round and reactive to light. He is wearing a mask. MUSCULOSKELETAL: He has pain in his lumbar back that does radiate down the L3 dermatomal distribution into his left leg. Negative straight leg raising. He has good rotation of his back. Sensation is intact and normal in his lower extremities at 5/5. He has no pain with forward flexion and extension, rotation or side to side tilt. Does have some discomfort in his hands from his osteoarthritis. IMPRESSION: 1. Post-laminectomy syndrome. 2. History of spinal stenosis, now decompression. 3. Lumbar spondylosis. 4. Management of opioid therapy in terms of agreement. 5. Osteoarthritis in his hands. We reviewed the fact that opiate medications are being used to provide analgesia adequate to support activities of daily living, not attempting to achieve a specific pain score on the 0-10 Visual Analog Scale. The current opiate medications are providing sufficient analgesia to allow the patient to participate in activities of daily living. The patient is not exhibiting any aberrant behavior suggestive of drug diversion. The patient is not having any adverse reactions to medications. The patient is not suffering from daytime somnolence or mental acuity changes. The patient is managing opiate-induced constipation with appropriate mjto-pkz-fkghykx agents and dietary considerations. The patient was counseled on concern for caution with operating a motor vehicle while using opiate medications. A physical exam was performed and the patient's functional status was evaluated. All patients with back pain were advised against the bed rest greater than 4 days and were advised to return to normal activities. Pain score assessment was noted and the treatment plan was reviewed with the patient. All current medications, both prescribed and OTC were reviewed and reconciled on the electronic medical record. Tobacco screening was accomplished and smoking cessation was advised when indicated. BMI was noted and diet/exercise modification was recommended for all patients following outside normal parameters. [address] [address] PAIN MANAGEMENT CONSULTATION Name: VALERIE NEWMAN Room #: REG [facility]#: [id number] Admission: 05/12/20 Attend Phys: Lupis Rodriguez Discharge: Date of : 39 Report #: [id number] I reviewed with the patient today their responsibilities to safeguard prescription medications, reviewed their responsibility to utilize medications only as prescribed by the physician. They are to seek and receive pain medications only from 1 physician group ( [facility]). They are to use 1 pharmacy and keep the clinic informed if they change pharmacies. Their responsibilities include making followup visits in a timely fashion and to avoid abrupt discontinuation of medication usage. Their responsibilities further include bringing their medications (bottles from the pharmacy with residual pills) to the visit for possible confirmation of pill counts and the patient understands it is their responsibility to submit to random drug screens to ensure both that the medications prescribed are present, and that no other controlled substances are present. All prescriptions provided today were generated electronically. PLAN: 1. We discussed treatment options with the patient today. The patient finds his hydrocodone taking 1 to 1-1/2 very beneficial. We will continue at this current level. I encouraged the patient if he does need to take an extra half a tablet that is fine. He is on a very low dose of his medications. The patient is worried about addiction. We did discuss this briefly, discussing tolerance, dependency and addiction. Scripts will be sent to his pharmacy for hydrocodone 10/325, #60 for today and 4-week release. 2. We did discuss diclofenac gel that he may use on his hands and knees if his osteoarthritis does flare. We discussed that he is on Plavix and unable to take oral anti-inflammatory medications, but this is an alternative medication that does not affect him systemically and is able to take with his blood thinner. The patient is instructed to try this over the counter. If it is beneficial, I will gladly call in a prescription for Voltaren gel for this patient. 3. The patient will return as needed for medication management. He is seen in today in collaboration with Dr. Valerie Marlow. <ELECTRONICALLY SIGNED> By: Lupis Rodriguez 05/13/20 0755 [id number] [id number] Lupis Rodriguez /nt
== END ==
LOC: PAIN 01-11 06:44
PROVIDERS: ATTEND Clinical Nurse Specialist Adult Health
DX: M47.816 Spondylosis without myelopathy or radiculopathy, lumbar region (principal); M96.1 Postlaminectomy syndrome, not elsewhere classified; M48.00 Spinal stenosis, site unspecified; F11.20 Opioid dependence, uncomplicated; M19.042 Primary osteoarthritis, left hand; M19.041 Primary osteoarthritis, right hand; Z86.69 Personal history of other diseases of the nervous system and sense organs; Z79.899 Other long term (current) drug therapy

== ENCOUNTER → 2020-09-01 | Outpatient (CLI) | payer OTHER ==
[~2020-09-01] VITALS: Ht 167.6 cm; Wt 64.2 kg
--- NOTE | ~2020-09-01 | HPC ---
[facility] [address] [place] [address] PAIN MANAGEMENT CONSULTATION Name: SUSANNAPEPEVALERIE Room #: REG [facility].#: [id number] Admission: 09/01/20 Attend Phys: Lupis Rodriguez Discharge: Date of : 39 Report #: [id number] THIS REPORT FOR: cc: Gaston Zambrano MD,Gaston Rodriguez,Lupis WATSON ~ CC: Lupis Zambrano DATE OF SERVICE: 09/01/2020 CHIEF COMPLAINT: Low back pain, spinal stenosis and post-laminectomy syndrome. HISTORY OF PRESENT ILLNESS: This is alert and orientated very pleasant 79-year-old gentleman who returned to the pain clinic today for refill of his opioid medications stating his pain score today is a 4/10. He feels that the hydrocodone is enabling him to be as active as he would like. He does take it first thing in the morning and then may take another half a tablet later in the day if he is going to be active. Denies any problems with constipation as a result of this medication. 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 ALLERGIES: No known drug allergies. CURRENT LIST OF MEDICATIONS: Hydrocodone 10/325 p.r.n., omega 3, CoQ10, Osteo Bi-Flex, vitamin D, multivitamin, sertraline, Lipitor, diltiazem, lisinopril and Plavix. PQRS: 1. The patient does have a history of osteoarthritis in his hands. He denies any rheumatoid arthritis. 2. Height is 5 feet 6 inches, weight is 141, BMI is 22. 3. Vital signs 135/79, pulse is 73, respirations 16, oxygen sat is 95%. 4. Pain score is 4/10. 5. Denies dizziness, does not need help walking or standing, has fallen in the last 3 months, but not injured himself, will require medical attention. 6. The patient is on blood thinners as well as medicines for hypertension. 7. Opioid therapy is greater than 6 weeks; therefore, an opioid signed contract is on the chart. Risk assessment is low. Functional assessment is 37/70. 8. Recreational drug use, he denies. He is a current smoker of a pipe and occasionally drinks alcoholic beverages. 9. According to the prescription monitoring system, the patient is filling appropriately. He typically fills the prescription every 2 months since he does utilize his medicine on an as needed basis. His morphine mEq is 10-20 MMEs per day. [address] [address] PAIN MANAGEMENT CONSULTATION Name: VALERIE NEWMAN Room #: REG CL Benji#: [id number] Admission: 09/01/20 Attend Phys: Lupis Rodriguez Discharge: Date of : 39 Report #: [id number] PHYSICAL EXAMINATION: GENERAL: This is alert and orientated, very pleasant 79-year-old gentleman who appears younger than his stated age, placing his current pain score at 4/10. HEENT: Normocephalic, atraumatic. Extraocular eye muscles are intact. He is wearing glasses and a mask. MUSCULOSKELETAL: His pain is in the lumbosacral region of his spine that radiates down the L3 dermatomal distribution greater on the left than the right. Negative straight leg raising. His hands are tender with his osteoarthritis. Lower extremity strength is symmetrical at 5/5. IMPRESSION: 1. Post-laminectomy syndrome. 2. Spinal stenosis with decompression surgery. 3. Lumbar spondylosis. 4. Osteoarthritis of his hands. 5. Management of opioid medications under written agreement. We reviewed the fact that opiate medications are being used to provide analgesia adequate to support activities of daily living, not attempting to achieve a specific pain score on the 0-10 Visual Analog Scale. The current opiate medications are providing sufficient analgesia to allow the patient to participate in activities of daily living. The patient is not exhibiting any aberrant behavior suggestive of drug diversion. The patient is not having any adverse reactions to medications. The patient is not suffering from daytime somnolence or mental acuity changes. The patient is managing opiate-induced constipation with appropriate atbi-qtc-wuddlnz agents and dietary considerations. The patient was counseled on concern for caution with operating a motor vehicle while using opiate medications. PLAN: 1. We discussed treatment options with the patient today. The patient found the trial of Voltaren gel not beneficial in helping relieving some of his arthritic pains in his hands. We will not continue that medication. The patient is on Plavix, so he is unable to take oral anti-inflammatory medications. 2. The patient finds his hydrocodone taking 1-2 tablets a day very beneficial. We will continue this medication. Sending scripts electronically for , #60, for today and 4-week supply. This will possibly last the patient 4-5 months, having him return in early January. 3. We did discuss the COVID outbreak. He is apprehensive about coming to the clinic during this high time of COVID. I explained to him that we will revisit Tele-Med appointments with him when he is due for his appointment in January. Hopefully, by then, the pandemic has decreased in severity and we will make a [facility] [address] [place] [address] PAIN MANAGEMENT CONSULTATION Name: VALERIE NEWMAN Room #: SHUN Leblanc#: [id number] Admission: 09/01/20 Attend Phys: Lupis Rodriguez Discharge: Date of : 39 Report #: [id number] decision at that time of his appointment. 4. The patient is seen in collaboration with Dr. Valerie Marlow today. By: [id number] Lupis Rodriguez /nt
[2020-09-01 14:24] VITALS: BP 135/79
--- NOTE | 2020-09-01 14:39 | NUR ---
Pain Clinic Assessment: 1. History of Osteoarthritis: THUMBS History of Rheumatoid Arthritis: DENIES 2. Height: 5 ft. 6 in. 167.6 cm. Weight: 141.6 lb. oz. 64.229 kg. Patient's BMI: 22.9 3. Vital Signs: BP: 135/79 Pulse: 73 Resp: 16 Temp: 02 Sat: 95 ECG Mon: 4. Pain Intensity: 4 5. Fall Risk: Dizziness: N Needs help standing or walking: N Fallen in the last 3 months: Y Fall risk comments: 6. Patient on Blood Thinner: Clopidogrel Bisulf(Plavix 7. History of Hypertension: Y 8. Opioid Therapy greater than 6 weeks: Y Opiate Contract Signed: 11/18/17 9. Risk Assessment Tool Provided: LOW RISK 10/23 10. Functional Assessment Tool: 11. Recreational Drug Use: Never Drug Type: Tobacco Use: Current Every Day Smoker Tobacco Type: Pipe Tobacco Amount or Packs/day: 1 PACK Q 2WK How Many Years: 30 Alcohol Use: Yes Frequency: Daily Quant: 1 DAY
== END ==
LOC: PAIN 07:00
PROVIDERS: ATTEND Clinical Nurse Specialist Adult Health
DX: M47.816 Spondylosis without myelopathy or radiculopathy, lumbar region (principal); M96.1 Postlaminectomy syndrome, not elsewhere classified; M48.061 Spinal stenosis, lumbar region without neurogenic claudication; M19.041 Primary osteoarthritis, right hand; M19.042 Primary osteoarthritis, left hand; F11.20 Opioid dependence, uncomplicated

== ENCOUNTER → 2020-12-26 | Outpatient (CLI) | payer OTHER ==
[~2020-12-26] VITALS: Ht 167.6 cm; Wt 60.8 kg
[2020-12-26 13:49] VITALS: BP 138/77
--- NOTE | 2020-12-26 13:53 | NUR ---
Pain Clinic Assessment: 1. History of Osteoarthritis: THUMBS History of Rheumatoid Arthritis: DENIES 2. Height: 5 ft. 6 in. 167.6 cm. Weight: 134.0 lb. oz. 60.782 kg. Patient's BMI: 21.6 3. Vital Signs: BP: 138/77 Pulse: 78 Resp: 18 Temp: 02 Sat: 94 ECG Mon: 4. Pain Intensity: 1 5. Fall Risk: Dizziness: N Needs help standing or walking: N Fallen in the last 3 months: N Fall risk comments: 6. Patient on Blood Thinner: Clopidogrel Bisulf(Plavix 7. History of Hypertension: Y 8. Opioid Therapy greater than 6 weeks: Y Opiate Contract Signed: 11/18/17 9. Risk Assessment Tool Provided: LOW RISK 1 10. Functional Assessment Tool: 11. Recreational Drug Use: Never Drug Type: Tobacco Use: Current Every Day Smoker Tobacco Type: Pipe Tobacco Amount or Packs/day: How Many Years: Alcohol Use: No Frequency: Quant:
--- NOTE | 2020-12-27 12:15 | HPC ---
[facility] [address] [place] [address] PAIN MANAGEMENT CONSULTATION Name: PATYVALERIE Evens Room #: REG [facility].#: [id number] Admission: 12/26/20 Attend Phys: Lupis Rodriguez Discharge: Date of : 39 Report #: [id number] THIS REPORT FOR: cc: Gaston Zambrano MD, Christopher B. MD Hocker,Lupis WATSON ~ DATE OF SERVICE: 12/26/2020 CHIEF COMPLAINT: Low back pain, spinal stenosis and post-laminectomy syndrome. HISTORY OF PRESENT ILLNESS: This is a very pleasant 80-year-old gentleman who returns to the pain clinic today for refill of his medications. Our last visit with him was in August. Since that time, he reports he has been staying healthy, no falls or hospitalizations. He recently received his second COVID vaccine and is here present today for refills of medications. The patient reports that his pain is mostly located in his low back, so occasionally radiates down his bilateral legs. He is utilizing a cane today, which is more a safety concern for balance. He reports typically he feels steady enough not to use this, but he did walk significant distance and is utilizing it today. His pain score is a 1/10. He believes the hydrocodone is very beneficial in controlling his pain, taking one tablet every morning. He took his last pill this morning per his report. He denies constipation or daytime somnolence as a result of his medications. ALLERGIES: No known drug allergies. CURRENT LIST OF MEDICATIONS: Hydrocodone 10/325 p.r.n., Voltaren gel, omega 3, CoQ10, Osteo Bi-Flex, vitamin D, multivitamin, sertraline, atorvastatin, diltiazem, lisinopril, and Plavix. PQRS: 1. He has osteoarthritic issues in his hands. Denies any rheumatoid arthritis. 2. Height is 5 feet 6 inches, weight is 134, BMI is 21. 3. Vital signs 138/77, pulse is 78, respirations 18, oxygen sat is 94%. Pain score is 1/10. 4. Denies dizziness, does utilize a cane with ambulation. Has not fallen in the last 3 months. 5. The patient is on Plavix as well as medication for hypertension. His opioid therapy is greater than 6 weeks; therefore, an opioid signed contract is on the chart. Risk assessment is low. Functional assessment is 37/70. 6. Recreational drug use, he denies. He currently smokes a pipe and does not drink alcohol. According to the prescription monitoring system, he is filling appropriately. He utilizes his medications average of 1 a day. Therefore, his medications do [address] [address] PAIN MANAGEMENT CONSULTATION Name: VALERIE NEWMAN Room #: REG NIDHI Leblanc#: [id number] Admission: 12/26/20 Attend Phys: Lupis Rodriguez Discharge: Date of : 39 Report #: [id number] last him significantly longer. We will put an opioid consent for treatment contract in his chart to be signed at his next appointment. PHYSICAL EXAMINATION: GENERAL: This is alert and oriented 80-year-old gentleman who is very pleasant, rating his pain score today at 1/10. He is a good historian. HEENT: Normocephalic, atraumatic. Extraocular eye muscles are intact. Mucous membranes are moist. He is utilizing a mask. MUSCULOSKELETAL: Tenderness in the lumbosacral region that radiates down the L3 dermatomal distribution into his legs bilaterally. Tenderness in his hands from arthritic issues. He does utilize a cane today with a slightly antalgic gait. Negative straight leg raising. His lower extremities are strength is 5/5 and good muscle tone and strength with good sensation from L1-S2. IMPRESSION: 1. Post-laminectomy syndrome. 2. Spinal stenosis with decompression surgery. 3. Lumbar spondylosis. 4. Osteoarthritic changes in his hands. 5. Management of opioid medications. PLAN: 1. We discussed treatment options with the patient today. The patient finds the hydrocodone very beneficial. He did take his last medication today and is hopeful that we will be able to send these electronically, so he can pick them up today. I believe that will not be a problem. His last fill was in October for his pain pills. 2. Scripts sent for 2 months of Hydrocodone. 3. We did discuss Relief Factor, the patient is considering utilizing this medication. I explained to him that he would not need to take any additional fish oil, since it does contain omega 3 in that medication. He may find it beneficial in helping reduce some of inflammation in his body. He is not able to take oral anti-inflammatory medications due to his Plavix. We also discussed Voltaren gel as an alternative. 4. The patient is seen today in collaboration with Dr. Valerie Marlow. The patient will return in 3-4 months depending on his usage of hydrocodone. Time spent with the patient today in consultation and physical exam of 12 minutes. Prior to the appointment today, I spent time reviewing the chart and any pertinent medical documentation including notes. Timeout was spent reviewing the physician monitoring system, side effects of medication, sending scripts electronically with collaborated physician, Dr. Marlow and documentation of at least [address] [address] PAIN MANAGEMENT CONSULTATION Name: VALERIE NEWMAN Room #: SHUN Leblanc#: [id number] Admission: 12/26/20 Attend Phys: Lupis Rodriguez Discharge: Date of : 39 Report #: [id number] Total time spent 27 minutes. <ELECTRONICALLY SIGNED> By: Lupis Rodriguez 12/27/20 1215 [id number] [id number] Lupis Rodriguez /nt
== END ==
LOC: PAIN 06:53
PROVIDERS: ATTEND Clinical Nurse Specialist Adult Health
DX: M47.816 Spondylosis without myelopathy or radiculopathy, lumbar region (principal); M48.061 Spinal stenosis, lumbar region without neurogenic claudication; M96.1 Postlaminectomy syndrome, not elsewhere classified; M19.041 Primary osteoarthritis, right hand; M19.042 Primary osteoarthritis, left hand; Z88.8 Allergy status to other drugs, medicaments and biological substances

== ENCOUNTER → 2021-04-20 | Outpatient (CLI) | payer OTHER ==
[~2021-04-20] VITALS: Ht 167.6 cm; Wt 62.5 kg
[2021-04-20 14:39] VITALS: BP 156/79
--- NOTE | 2021-04-20 14:57 | NUR ---
Pain Clinic Assessment: 1. History of Osteoarthritis: THUMBS History of Rheumatoid Arthritis: DENIES 2. Height: 5 ft. 6 in. 167.6 cm. Weight: 137.8 lb. oz. 62.506 kg. Patient's BMI: 22.3 3. Vital Signs: BP: 156/79 Pulse: 64 Resp: 20 Temp: 02 Sat: 96 ECG Mon: 4. Pain Intensity: 0 5. Fall Risk: Dizziness: N Needs help standing or walking: Y Fallen in the last 3 months: N Fall risk comments: 6. Patient on Blood Thinner: Clopidogrel Bisulf(Plavix 7. History of Hypertension: Y 8. Opioid Therapy greater than 6 weeks: Y Opiate Contract Signed: 11/18/17 9. Risk Assessment Tool Provided: LOW RISK 1 10. Functional Assessment Tool: 11. Recreational Drug Use: Never Drug Type: Tobacco Use: Current Every Day Smoker Tobacco Type: Pipe Tobacco Amount or Packs/day: How Many Years: Alcohol Use: Yes Frequency: Daily Quant: LOPEZ
== END ==
LOC: PAIN 11:12
PROVIDERS: ATTEND Clinical Nurse Specialist Adult Health
DX: M47.816 Spondylosis without myelopathy or radiculopathy, lumbar region (principal); M48.061 Spinal stenosis, lumbar region without neurogenic claudication; M19.90 Unspecified osteoarthritis, unspecified site; M96.1 Postlaminectomy syndrome, not elsewhere classified; I10 Essential (primary) hypertension; F17.200 Nicotine dependence, unspecified, uncomplicated; Z79.891 Long term (current) use of opiate analgesic; Z79.899 Other long term (current) drug therapy; Z72.89 Other problems related to lifestyle

== ENCOUNTER → 2021-08-22 | Outpatient (CLI) | payer OTHER ==
[~2021-08-22] VITALS: Ht 167.6 cm; Wt 61.8 kg
[~2021-08-22] MED LIST changes: +ARTHRITIS PAIN100 GM TOP
[2021-08-22 10:59] VITALS: BP 136/67
--- NOTE | 2021-08-23 08:38 | HPC ---
[facility] [address] [place] [address] PAIN MANAGEMENT CONSULTATION Name: VAELRIE NEWMAN Room #: REG [facility]#: [id number] Admission: 08/22/21 Attend Phys: Lupis Rodriguez Discharge: Date of : 39 Report #: [id number] THIS REPORT FOR: cc: Gaston Zambrano MD, Christopher B. MD Hocker,Lupis WATSON ~ cc: Art Zambrano MD, Valerie Marlow MD DATE OF SERVICE: 08/22/2021 CHIEF COMPLAINT: Low back pain, spinal stenosis, post-laminectomy syndrome. HISTORY OF PRESENT ILLNESS: This is a very pleasant 80-year-old gentleman, who returns to the Pain Clinic today for ongoing medication management. The patient continues to have pain in his low back as a result of his post-failed laminectomy. He reports majority of his pain is located in his low back when he bends over or walks for a significant time, especially on uneven surfaces. He believes his mornings are worse. At that time, he does take a hydrocodone and finds it beneficial in alleviating the majority of his pain. Today, he reports a pain as 0/10 and describes it as an aching, sharp sensation when it occurs. The patient does utilize a cane when he walks mostly for balance and safety. The patient denies any ongoing constipation issues as a result of his opioid medications. The patient also utilizes Voltaren Gel on as needed basis and finds that beneficial. He reports today that he has had his COVID booster, did not experience any side effects after his injection. He has had the flu vaccination as well. ALLERGIES: No known drug allergies. CURRENT LIST OF MEDICATIONS: Hydrocodone p.r.n., diclofenac gel, omega-3, CoQ10, Osteo Bi-Flex, vitamin D3, multivitamin, sertraline, atorvastatin, diltiazem, lisinopril, and Plavix. PQRS: 1. He has osteoarthritic issues in his spine and thumbs. Denies any rheumatoid arthritis. Height is 5 feet 6 inches, weight is 136, BMI is 22. 2. Vital signs 136/67, pulse is 60, respirations 16, oxygen sat is 95%. 3. Pain score is 0 today with his medications. 4. Fall risk, denies dizziness. Does use a cane for ambulation, has not fallen in the last 3 months. 5. The patient is on Plavix as well as medication for hypertension. 6. Opioid therapy is greater than 6 weeks; therefore, an opioid signed contract is on the chart. 7. Risk assessment is low. Functional assessment is 37/70. 8. Recreational drug use, he denies. He currently smokes a pipe every day and [facility] [address] [place] [address] PAIN MANAGEMENT CONSULTATION Name: VALERIE NEWMAN Room #: REG CLE[facility]mer Leblanc#: [id number] Admission: 08/22/21 Attend Phys: Lupis Rodriguez Discharge: Date of : 39 Report #: [id number] occasionally drinks alcohol. According to the prescription monitoring system, the patient last filled his medication in May. He does take his hydrocodone very sparingly at 5 to 10 MMEs per day. He does take a benzodiazepine of Valium that is closely monitored by his primary care doctor. He reports not taking this medication at the same time as hydrocodone and does not take it on a daily basis. PHYSICAL EXAM: GENERAL: This is alert and orientated, very pleasant 80-year-old gentleman, who appears in no distress or has no signs of overmedication from his opioid medications. Reporting a pain score of 0/10 today. He is a good historian. HEENT: Normocephalic, atraumatic. Extraocular eye muscles are intact. He is wearing a mask for COVID precautions. MUSCULOSKELETAL: He has pain in the lumbosacral area that is worse with ambulation. No pain with forward flexion or extension or side to side tilt. Negative straight leg raising. Utilizes a cane. Sensation is intact in his lower extremities. Deep tendon reflexes are diminished at the knees and ankles bilaterally. IMPRESSION: 1. Low back pain with L3 dermatomal radicular pain. 2. Post-laminectomy syndrome. 3. History of spinal stenosis. 4. Lumbar spondylosis. 5. Management of opioid medications under terms of written opioid agreement. 6. Osteoarthritis. PLAN: 1. We discussed treatment options with the patient today. The patient finds his medication beneficial in alleviating the majority of his pain and allows him significant analgesia to participate in his activities of daily living. The patient would like to continue his hydrocodone and is requesting refills today. Scripts will be sent by Dr. Darrell Mayes, who is covering for Dr. Marlow today of , #60. 2. Prescriptions will be sent electronically. 3. We did caution the patient on taking his diazepam and hydrocodone at the same time. The patient reports not doing so. He takes his diazepam very sparingly and his last prescription fill of that medication was in June. 4. We will renew his Voltaren Gel, which he uses very sparingly for her arthritic issues in his hands. The patient will return in 2-4 months depending on his usage of his opioid medications. Time spent with the patient in consultation, reviewing recent studies and [address] [place] [address] PAIN MANAGEMENT CONSULTATION Name: VALERIE NEWMAN [facility] [id number] Admission: 08/22/21 Attend Phys: Lupis Rodriguez Discharge: Date of : 39 Report #: [id number] clinical notes and physician reports, physical examination and correlation of findings and medical documentation to determine possible treatment options 12 minutes. Time spent preparing for appointment, reviewing prescription monitoring system reports, reviewing previous records and proposed treatment options, reviewing current medications 5 minutes. Time spent preparing and sending electronic prescriptions with collaborating physician, Dr. Darrell Mayes, who is covering for Dr. Marlow, and documentation of visit and plan of treatment 5 minutes. Total time spent 22 minutes. <ELECTRONICALLY SIGNED> By: Lupis Rodriguez 08/23/21 0838 1103 1152 Lupis Rodriguez /nt
== END ==
LOC: PAIN 07:00
PROVIDERS: ATTEND Clinical Nurse Specialist Adult Health
DX: M47.26 Other spondylosis with radiculopathy, lumbar region (principal); M48.061 Spinal stenosis, lumbar region without neurogenic claudication; M19.90 Unspecified osteoarthritis, unspecified site; M96.1 Postlaminectomy syndrome, not elsewhere classified; Z79.899 Other long term (current) drug therapy

== ENCOUNTER → 2021-12-18 | Outpatient (CLI) | payer OTHER ==
[~2021-12-18] VITALS: Ht 170.2 cm; Wt 62.1 kg
[2021-12-18 13:04] VITALS: BP 144/72
--- NOTE | 2021-12-18 13:10 | NUR ---
Pain Clinic Assessment: 1. History of Osteoarthritis: THUMBS History of Rheumatoid Arthritis: DENIES 2. Height: 5 ft. 7 in. 170.2 cm. Weight: 137.0 lb. oz. 62.143 kg. Patient's BMI: 21.5 3. Vital Signs: BP: 144/72 Pulse: 79 Resp: 16 Temp: 02 Sat: 95 ECG Mon: 4. Pain Intensity: 0 5. Fall Risk: Dizziness: N Needs help standing or walking: N Fallen in the last 3 months: N Fall risk comments: 6. Patient on Blood Thinner: Clopidogrel Bisulf(Plavix 7. History of Hypertension: Y 8. Opioid Therapy greater than 6 weeks: Y Opiate Contract Signed: 11/18/17 9. Risk Assessment Tool Provided: LOW RISK 1 10. Functional Assessment Tool: 11. Recreational Drug Use: Never Drug Type: Tobacco Use: Current Every Day Smoker Tobacco Type: Pipe Tobacco Amount or Packs/day: How Many Years: Alcohol Use: Yes Frequency: Daily Quant: 1Y
== END ==
LOC: PAIN 08:30
PROVIDERS: ATTEND Clinical Nurse Specialist Adult Health
DX: G89.29 Other chronic pain (principal); M47.816 Spondylosis without myelopathy or radiculopathy, lumbar region; M96.1 Postlaminectomy syndrome, not elsewhere classified; M19.90 Unspecified osteoarthritis, unspecified site; M48.061 Spinal stenosis, lumbar region without neurogenic claudication; F17.200 Nicotine dependence, unspecified, uncomplicated; Z79.899 Other long term (current) drug therapy